=== PATIENT | male | born 1985 | race Caucasian/White ===

== ENCOUNTER 2020-06-26 02:10 | Emergency (ER) | payer OTHER ==
[~2020-06-26] VITALS: Ht 177.8 cm; Wt 86.4 kg
[~2020-06-26 02:10] MED LIST: ALBUTEROL2.5 MG/31 INH; CLONAZEPAM 0.50.5 M1 PO; NOHOMEMEDICATIONS; XANAX1 MG PO
[2020-06-26 02:52] LABS: ABSOLUTE BASOPHILS 0.2 thou/uL (0.0-0.2); ABSOLUTE EOSINOPHILS 0.3 thou/uL (0.0-0.7); ABSOLUTE LYMPHOCYTES 2.5 thou/uL (0.8-5.3); ABSOLUTE MONOCYTES 1.2 thou/uL (0.0-1.2); ABSOLUTE NEUTROPHILS 7.8 thou/uL (1.6-8.1); BASOPHILS 1.4 %; EOSINOPHILS 2.2 %; HEMATOCRIT 39.3 % (42.0-52.0); HEMOGLOBIN 13.1 gm/dL (14.0-18.0); LYMPHOCYTES 20.6 %; MCH 31.8 pg (26.0-34.0); MCHC 33.4 g/dL (28.0-37.0); MCV 95.3 fL (80.0-100.0); MONOCYTES 10.4 %; MPV 6.6 fl. (7.2-11.1); NUCLEATED RBCS 0 /100WBC; PLATELET COUNT* 304 thou/uL (150-400); POLYS 65.4 %; RBC 4.13 mil/uL (4.50-6.00); RDW-CV 14.3 % (10.5-14.5); WBC 11.9 thou/uL (4.0-11.0)
[2020-06-26 02:57] LABS: CALCIUM 7.9 mg/dL (8.5-10.1); CREATININE 1.1 mg/dL (0.6-1.3); POTASSIUM 3.9 mmol/L (3.5-5.1)
[2020-06-26 03:07] LABS: ALBUMIN 3.6 g/dL (3.4-5.0); MAGNESIUM 2.1 mg/dL (1.8-2.4); TOTAL BILIRUBIN 0.3 mg/dL (<0.1-1.0); TOTAL PROTEIN 6.7 g/dL (6.4-8.2)
[2020-06-26 06:21] VITALS: BP 117/62
--- NOTE | 2020-06-26 17:48 | EKG ---
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: OBINNA : 1985 Requested By: Billy Rogers Order Number: [id number] MD: Vazquez Isaacs Measurements Intervals [place] Rate: 90 P: 77 MS: 140 QRS: 95 QRSD: 112 T: 21 QT: 366 QTc: 448 Interpretive Statements Sinus rhythm ST elev, probable normal early repol pattern Baseline wander in lead(s) II,III,aVR,aVL,aVF,V2,V3,V4,V5,V6 Compared to ECG 12/06/2014 15:14:25 ST (T wave) deviation now present Sinus arrhythmia no longer present Electronically Signed On 06-26-2020 17:48:00 CDT by Vazquez Isaacs [email or web address] <ELECTRONICALLY SIGNED> By: Vazquez Isaacs MD, FACC 06/26/20 1748 6 6 Vazquez Isaacs MD, FACC /EPI
== END 2020-06-26 09:10 | disposition home or self-care (01) ==
LOC: M.ERS 02:10
PROVIDERS: Emergency Medicine Emergency Medical Services
DX: R07.89 Other chest pain (principal); F17.210 Nicotine dependence, cigarettes, uncomplicated; Z90.49 Acquired absence of other specified parts of digestive tract